=== PATIENT | male | born 2005 | race Two or more races ===

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

== ENCOUNTER 2023-01-23 06:00 | Outpatient (RCR) | payer MEDICAID, SELFPAY | END 2023-02-22 23:59 | disposition home or self-care (01) | LOC: SOS 06:00 | PROVIDERS: Visit Provider Pediatrics Adolescent Medicine | DX: F84.0 Autistic disorder (principal); R62.50 Unspecified lack of expected normal physiological development in childhood | CPT/HCPCS: 92507 ==

== ENCOUNTER 2023-01-23 06:00 | Outpatient (RCR) | payer MEDICAID, SELFPAY | END 2023-02-13 23:59 | disposition home or self-care (01) | LOC: SPT 06:00 | PROVIDERS: Visit Provider Podiatrist Foot & Ankle Surgery | DX: R26.9 Unspecified abnormalities of gait and mobility (principal); Q66.51 Congenital pes planus, right foot; Q66.52 Congenital pes planus, left foot | CPT/HCPCS: 97110 ==

== ENCOUNTER 2023-02-23 06:00 | Outpatient (RCR) | payer MEDICAID, SELFPAY | END 2023-03-24 23:59 | disposition home or self-care (01) | LOC: SOS 06:00 | PROVIDERS: Visit Provider Pediatrics Adolescent Medicine | DX: F84.0 Autistic disorder (principal); F80.89 Other developmental disorders of speech and language; R62.50 Unspecified lack of expected normal physiological development in childhood | CPT/HCPCS: 92507 ==

== ENCOUNTER → 2023-03-06 15:28 | Outpatient (BNVA) | payer MEDICAID, SELFPAY | PROVIDERS: Visit Provider Podiatrist Foot & Ankle Surgery | DX: M21.41 Flat foot [pes planus] (acquired), right foot; M21.42 Flat foot [pes planus] (acquired), left foot; M76.829 Posterior tibial tendinitis, unspecified leg; M20.42 Other hammer toe(s) (acquired), left foot; M20.41 Other hammer toe(s) (acquired), right foot; M21.612 Bunion of left foot; M21.611 Bunion of right foot; M24.572 Contracture, left ankle; M24.571 Contracture, right ankle | CPT/HCPCS: 99213 ==

== ENCOUNTER 2023-03-25 06:00 | Outpatient (RCR) | payer MEDICAID, SELFPAY | END 2023-04-24 23:59 | disposition home or self-care (01) | LOC: SOS 06:00 | PROVIDERS: Visit Provider Pediatrics Adolescent Medicine | DX: F84.0 Autistic disorder (principal) | CPT/HCPCS: 92507 ==

== ENCOUNTER 2023-04-25 06:00 | Outpatient (RCR) | payer MEDICAID, SELFPAY | END 2023-05-24 23:59 | disposition home or self-care (01) | LOC: SOS 06:00 | PROVIDERS: Visit Provider Pediatrics Adolescent Medicine | DX: R62.50 Unspecified lack of expected normal physiological development in childhood (principal); F84.0 Autistic disorder; F80.89 Other developmental disorders of speech and language | CPT/HCPCS: 92507 ==

== ENCOUNTER 2023-05-25 06:00 | Outpatient (RCR) | payer MEDICAID, SELFPAY | END 2023-06-24 23:59 | disposition home or self-care (01) | LOC: SOS 06:00 | PROVIDERS: Visit Provider Pediatrics Adolescent Medicine | DX: F84.0 Autistic disorder (principal); F80.89 Other developmental disorders of speech and language; R62.50 Unspecified lack of expected normal physiological development in childhood | CPT/HCPCS: 92507 ==

== ENCOUNTER 2023-07-26 06:00 | Outpatient (RCR) | payer MEDICAID, SELFPAY | END 2023-08-23 23:59 | disposition home or self-care (01) | LOC: SST 06:00 | PROVIDERS: Visit Provider Pediatrics Adolescent Medicine | DX: F84.0 Autistic disorder (principal); R62.50 Unspecified lack of expected normal physiological development in childhood | CPT/HCPCS: 92507 ==

== ENCOUNTER 2023-08-24 06:00 | Outpatient (RCR) | payer MEDICAID, SELFPAY | END 2023-09-23 23:59 | disposition home or self-care (01) | LOC: SST 06:00 | PROVIDERS: Visit Provider Pediatrics Adolescent Medicine | DX: R62.50 Unspecified lack of expected normal physiological development in childhood (principal); F84.0 Autistic disorder | CPT/HCPCS: 92507 ==

== ENCOUNTER 2023-09-04 12:49 | Outpatient (CLI) | payer MEDICAID, SELFPAY ==
--- NOTE | 2023-09-04 12:54 | MR_ITS ---
WS: [id number] MRI HEAD WITHOUT CONTRAST TECHNIQUE: Sagittal T1, T2 axial, T2 axial FLAIR, axial and coronal T1 images, axial susceptibility w eighted imaging, axial diffusion weighted images, and coronal T2 images were obtained. CLINICAL INFORMATION: GENERALIZED IDIOPATHIC EPILEPSY, INTRACTABLE W/O STAT EPI COMPARISON: CT head 2018 FINDINGS: No evidence of restricted diffusion to suggest acute ischemia. Ventricular system and basilar cistern s are patent. No suspicious intracranial signal normalities. Normal delacruz-white differentiation. Ligia l posterior fossa. Normal vascular flow voids at the skull base. No extra-axial fluid collections. No evidence of mass or mass effect. Normal posterior nasopharynx. Prominent adenoid tissue in the poste rior nasopharynx normal for a patient this age. Complete opacification of the frontal sinuses similar to the prior CT in 2020. Opacification of the f rontoethmoidal recesses. Mild mucosal thickening in the ethmoid air cells. Inspissated secretions in the frontal sinuses. Hypoplastic RIGHT maxillary sinus. Normal visualized posterior nasopharynx. Fabiano gn incidental arachnoid cyst overlying the RIGHT parietal convexity at the vertex measuring 2.6 x 1.1 cm unchanged since the prior CT. No hemosiderin on the susceptibly weighted images. Normal optic chiasm and pituitary infundibulum. Te mporal lobes and hippocampal formations are normal in appearance. Normal cavernous sinuses and Meckel 's cave. IMPRESSION: 1. No evidence of restricted diffusion to suggest acute ischemia. 2. No suspicious intracranial signal abnormalities. 3. No hemosiderin on the susceptibly weighted images. 4. Incidental benign arachnoid cyst overlying the RIGHT parietal convexity unchanged. 5. Temporal lobes and hippocampal formations are normal in appearance. No evidence of mesial tempora l sclerosis. 6. Complete chronic opacification with inspissated secretions frontal sinuses with bony remodeling. Opacification of the frontoethmoidal recesses. This is similar in appearance to the prior CT 2020.
== END 2023-09-04 12:50 | disposition home or self-care (01) ==
LOC: RAD 12:49
PROVIDERS: PCP Psychiatry & Neurology Neurology; Visit Provider Psychiatry & Neurology Neurology
DX: G40.319 Generalized idiopathic epilepsy and epileptic syndromes, intractable, without status epilepticus (principal)
CPT/HCPCS: 70551

== ENCOUNTER → 2023-09-18 07:06 | Outpatient (BNVA) | payer MEDICAID, SELFPAY | PROVIDERS: PCP Psychiatry & Neurology Neurology; Visit Provider Podiatrist Foot & Ankle Surgery | DX: M21.41 Flat foot [pes planus] (acquired), right foot; M21.42 Flat foot [pes planus] (acquired), left foot; M20.41 Other hammer toe(s) (acquired), right foot; M20.42 Other hammer toe(s) (acquired), left foot; M21.612 Bunion of left foot; M21.611 Bunion of right foot; M24.572 Contracture, left ankle; M24.571 Contracture, right ankle; M76.821 Posterior tibial tendinitis, right leg; M76.822 Posterior tibial tendinitis, left leg | CPT/HCPCS: 99213 ==

== ENCOUNTER 2023-09-24 06:00 | Outpatient (RCR) | payer MEDICAID, SELFPAY | END 2023-10-23 23:59 | disposition home or self-care (01) | LOC: SST 06:00 | PROVIDERS: PCP Psychiatry & Neurology Neurology; Visit Provider Pediatrics Adolescent Medicine | DX: F84.0 Autistic disorder (principal); R62.50 Unspecified lack of expected normal physiological development in childhood | CPT/HCPCS: 92507 ==

== ENCOUNTER 2023-10-24 06:00 | Outpatient (RCR) | payer MEDICAID, SELFPAY | END 2023-11-23 23:59 | disposition home or self-care (01) | LOC: SST 06:00 | PROVIDERS: PCP Psychiatry & Neurology Neurology; Visit Provider Pediatrics Adolescent Medicine | DX: R62.50 Unspecified lack of expected normal physiological development in childhood (principal); F84.0 Autistic disorder | CPT/HCPCS: 92507 ==

== ENCOUNTER 2023-11-24 06:00 | Outpatient (RCR) | payer MEDICAID, SELFPAY | END 2023-12-23 23:59 | disposition home or self-care (01) | LOC: SST 06:00 | PROVIDERS: PCP Psychiatry & Neurology Neurology; Visit Provider Pediatrics Adolescent Medicine | DX: F84.0 Autistic disorder (principal); R62.50 Unspecified lack of expected normal physiological development in childhood | CPT/HCPCS: 92507 ==

== ENCOUNTER 2023-12-24 06:00 | Outpatient (RCR) | payer MEDICAID, SELFPAY | END 2024-01-23 23:59 | disposition home or self-care (01) | LOC: SST 06:00 | PROVIDERS: PCP Psychiatry & Neurology Neurology; Visit Provider Pediatrics Adolescent Medicine | DX: F84.0 Autistic disorder (principal) | CPT/HCPCS: 92507 ==

== ENCOUNTER 2024-01-24 06:00 | Outpatient (RCR) | payer MEDICAID, SELFPAY | END 2024-02-23 23:59 | disposition home or self-care (01) | LOC: SST 06:00 | PROVIDERS: PCP Psychiatry & Neurology Neurology; Visit Provider Pediatrics Adolescent Medicine | DX: R62.50 Unspecified lack of expected normal physiological development in childhood (principal); F84.0 Autistic disorder | CPT/HCPCS: 92507 ==

== ENCOUNTER 2024-02-24 06:44 | Outpatient (RCR) | payer MEDICAID, SELFPAY | END 2024-03-24 23:59 | disposition home or self-care (01) | LOC: SST 06:44 | PROVIDERS: PCP Psychiatry & Neurology Neurology; Visit Provider Pediatrics Adolescent Medicine | DX: R62.50 Unspecified lack of expected normal physiological development in childhood (principal); F84.0 Autistic disorder; F80.89 Other developmental disorders of speech and language | CPT/HCPCS: 92507 ==

== ENCOUNTER 2024-03-25 06:00 | Outpatient (RCR) | payer MEDICAID, SELFPAY | END 2024-04-24 23:59 | disposition home or self-care (01) | LOC: SST 06:00 | PROVIDERS: PCP Psychiatry & Neurology Neurology; Visit Provider Pediatrics Adolescent Medicine | DX: F84.0 Autistic disorder (principal); R62.50 Unspecified lack of expected normal physiological development in childhood | CPT/HCPCS: 92507 ==

== ENCOUNTER 2024-04-25 06:00 | Outpatient (RCR) | payer MEDICAID, SELFPAY | END 2024-05-24 23:59 | disposition home or self-care (01) | LOC: SST 06:00 | PROVIDERS: PCP Psychiatry & Neurology Neurology; Visit Provider Pediatrics Adolescent Medicine | DX: R62.50 Unspecified lack of expected normal physiological development in childhood (principal); F84.0 Autistic disorder | CPT/HCPCS: 92507 ==

== ENCOUNTER 2024-05-25 06:00 | Outpatient (RCR) | payer MEDICARE, MEDICAID, SELFPAY | END 2024-06-24 23:59 | disposition home or self-care (01) | LOC: SST 06:00 | PROVIDERS: PCP Psychiatry & Neurology Neurology; Visit Provider Pediatrics Adolescent Medicine | DX: R62.50 Unspecified lack of expected normal physiological development in childhood (principal); F84.0 Autistic disorder | CPT/HCPCS: 92507 ==

== ENCOUNTER 2024-06-25 06:00 | Outpatient (RCR) | payer MEDICARE, MEDICAID, SELFPAY | END 2024-07-25 23:59 | disposition home or self-care (01) | LOC: SST 06:00 | PROVIDERS: PCP Psychiatry & Neurology Neurology; Visit Provider Pediatrics Adolescent Medicine | DX: F84.0 Autistic disorder (principal) | CPT/HCPCS: 92507 ==

== ENCOUNTER 2024-08-13 11:42 | Outpatient (RCR) | payer MEDICARE, MEDICAID, SELFPAY | END 2024-08-22 23:59 | disposition home or self-care (01) | LOC: SST 11:42 | PROVIDERS: PCP Psychiatry & Neurology Neurology; Visit Provider Pediatrics Adolescent Medicine | DX: R62.50 Unspecified lack of expected normal physiological development in childhood (principal) | CPT/HCPCS: 92507 ==

== ENCOUNTER 2024-08-23 06:00 | Outpatient (RCR) | payer MEDICARE, MEDICAID, SELFPAY | END 2024-09-22 23:59 | disposition home or self-care (01) | LOC: SST 06:00 | PROVIDERS: PCP Psychiatry & Neurology Neurology; Visit Provider Pediatrics Adolescent Medicine | DX: F84.0 Autistic disorder (principal); R62.50 Unspecified lack of expected normal physiological development in childhood | CPT/HCPCS: 92507 ==

== ENCOUNTER → 2024-09-16 06:54 | Outpatient (BNVA) | payer MEDICARE, MEDICAID, SELFPAY | PROVIDERS: PCP Psychiatry & Neurology Neurology; Visit Provider Podiatrist Foot & Ankle Surgery | DX: M21.41 Flat foot [pes planus] (acquired), right foot (principal); M21.42 Flat foot [pes planus] (acquired), left foot; M24.573 Contracture, unspecified ankle; M76.829 Posterior tibial tendinitis, unspecified leg; M20.42 Other hammer toe(s) (acquired), left foot; M20.41 Other hammer toe(s) (acquired), right foot; M21.611 Bunion of right foot; M21.612 Bunion of left foot; M76.821 Posterior tibial tendinitis, right leg; M76.822 Posterior tibial tendinitis, left leg | CPT/HCPCS: 99213 ==

== ENCOUNTER 2024-09-23 05:00 | Outpatient (RCR) | payer MEDICARE, MEDICAID, SELFPAY | END 2024-10-22 23:59 | disposition home or self-care (01) | LOC: SST 05:00 | PROVIDERS: PCP Psychiatry & Neurology Neurology; Visit Provider Pediatrics Adolescent Medicine | DX: R62.50 Unspecified lack of expected normal physiological development in childhood (principal); F84.0 Autistic disorder | CPT/HCPCS: 92507 ==

== ENCOUNTER 2024-10-23 09:44 | Outpatient (RCR) | payer MEDICARE, MEDICAID, SELFPAY | END 2024-11-22 23:55 | disposition home or self-care (01) | LOC: SST 09:44 | PROVIDERS: PCP Psychiatry & Neurology Neurology; Visit Provider Pediatrics Adolescent Medicine | DX: R62.50 Unspecified lack of expected normal physiological development in childhood (principal); F84.0 Autistic disorder | CPT/HCPCS: 92507 ==

== ENCOUNTER 2024-11-23 05:00 | Outpatient (RCR) | payer MEDICARE, MEDICAID, SELFPAY | END 2024-12-22 23:59 | disposition home or self-care (01) | LOC: SST 05:00 | PROVIDERS: PCP Psychiatry & Neurology Neurology; Visit Provider Pediatrics Adolescent Medicine | DX: F80.9 Developmental disorder of speech and language, unspecified (principal); F84.0 Autistic disorder | CPT/HCPCS: 92507 ==

== ENCOUNTER 2024-12-23 06:30 | Outpatient (RCR) | payer MEDICARE, MEDICAID, SELFPAY | END 2025-01-22 23:59 | disposition home or self-care (01) | LOC: SST 06:30 | PROVIDERS: PCP Psychiatry & Neurology Neurology; Visit Provider Pediatrics Adolescent Medicine | DX: F80.9 Developmental disorder of speech and language, unspecified (principal); F84.0 Autistic disorder | CPT/HCPCS: 92507 ==

== ENCOUNTER 2025-01-23 06:00 | Outpatient (RCR) | payer MEDICARE, MEDICAID, SELFPAY | END 2025-02-22 23:59 | disposition home or self-care (01) | LOC: SST 06:00 | PROVIDERS: PCP Psychiatry & Neurology Neurology; Visit Provider Pediatrics Adolescent Medicine | DX: F80.9 Developmental disorder of speech and language, unspecified (principal); F84.0 Autistic disorder | CPT/HCPCS: 92507 ==

== ENCOUNTER 2025-02-23 06:34 | Outpatient (RCR) | payer MEDICARE, MEDICAID, SELFPAY | END 2025-03-24 23:59 | disposition home or self-care (01) | LOC: SST 06:34 | PROVIDERS: PCP Psychiatry & Neurology Neurology; Visit Provider Pediatrics Adolescent Medicine | DX: F80.9 Developmental disorder of speech and language, unspecified (principal); F84.0 Autistic disorder | CPT/HCPCS: 92507 ==

== ENCOUNTER 2025-03-25 05:00 | Outpatient (RCR) | payer MEDICARE, MEDICAID, SELFPAY | END 2025-04-24 23:59 | disposition home or self-care (01) | LOC: SST 05:00 | PROVIDERS: PCP Psychiatry & Neurology Neurology; Visit Provider Pediatrics Adolescent Medicine | DX: F80.9 Developmental disorder of speech and language, unspecified (principal); F84.0 Autistic disorder | CPT/HCPCS: 92507 ==

== ENCOUNTER 2025-04-25 05:00 | Outpatient (RCR) | payer MEDICARE, MEDICAID, SELFPAY | END 2025-05-24 23:59 | disposition home or self-care (01) | LOC: SST 05:00 | PROVIDERS: PCP Psychiatry & Neurology Neurology; Visit Provider Pediatrics Adolescent Medicine | DX: F80.9 Developmental disorder of speech and language, unspecified (principal); F84.0 Autistic disorder | CPT/HCPCS: 92507 ==

== ENCOUNTER 2025-05-25 05:00 | Outpatient (RCR) | payer MEDICARE, MEDICAID, SELFPAY | END 2025-06-24 23:59 | disposition home or self-care (01) | LOC: SST 05:00 | PROVIDERS: PCP Psychiatry & Neurology Neurology; Visit Provider Pediatrics Adolescent Medicine | DX: F80.9 Developmental disorder of speech and language, unspecified (principal); F84.0 Autistic disorder | CPT/HCPCS: 92507 ==